=== PATIENT | female | born 1995 | race Caucasian/White ===

== ENCOUNTER 2020-11-28 17:21 | Emergency (ER) | payer OTHER ==
[~2020-11-28] VITALS: Ht 165.1 cm; Wt 90.7 kg
[2020-11-28 17:46] LABS: URINE BILIRUBIN NEGATIVE (Negative); URINE BLOOD TRACE (Negative); URINE GLUCOSE-RANDOM* NEGATIVE (Negative); URINE KETONES NEGATIVE (Negative); URINE NITRITE-REFLEX NEGATIVE (Negative); URINE PROTEIN (DIPSTICK) TRACE (Negative); URINE SPECIFIC GRAVITY >= 1.030 (1.005-1.035); URINE UROBILINOGEN 0.2 E.U./dl (0.2-1.0)
[2020-11-28 17:47] LABS: URINE CLARITY CLOUDY; URINE COLOR LIGHT YELLOW; URINE LEUKOCYTES-REFLEX 2+ (Negative)
[2020-11-28 18:02] LABS: SQUAMOUS >10 Many /LPF (0-3)
[2020-11-28 18:03] LABS: BACTERIA-REFLEX >30 Many /HPF (None Seen); URINE RBC None Seen /HPF (0-2); URINE WBC-REFLEX 6-15 Few /HPF (0-5)
[2020-11-28 18:05] LABS: CASTS None Seen /LPF (None Seen)
[2020-11-28 18:06] LABS: CRYSTALS None Seen /LPF (None Seen)
[2020-11-28 18:07] LABS: YEAST-REFLEX Present (None Seen)
[2020-11-28 18:15] VITALS: BP 123/82
[2020-11-28] MEDS ORDERED: KEFLEX500 M1 PO (18:16)
[2020-11-28] MEDS ORDERED: MICONAZOLE 745 GM VAG (18:16)
== END 2020-11-28 18:37 | disposition home or self-care (01) ==
LOC: ER 17:21
PROVIDERS: Nurse Practitioner Family
DX: O23.42 Unspecified infection of urinary tract in pregnancy, second trimester (principal); B37.3 Candidiasis of vulva and vagina; O99.332 Smoking (tobacco) complicating pregnancy, second trimester; F17.210 Nicotine dependence, cigarettes, uncomplicated; Z3A.23 23 weeks gestation of pregnancy